=== PATIENT | female | born 1960 | race Caucasian/White ===

== ENCOUNTER 2016-10-03 14:15 | Emergency (ER) | payer BC, SELFPAY ==
[2016-10-03] MEDS ORDERED: diphenhydrAMINE HCl 50 MG/ML 1 ML VIAL ONE (14:31)
[2016-10-03] MEDS ORDERED: methylPREDNISolone Sod Succ/PF 125 MG/2 ML VIAL ONE (14:32)
== END 2016-10-03 15:30 | disposition home or self-care (01) ==
LOC: BURERS 14:15
DX: T63.461A Toxic effect of venom of wasps, accidental (unintentional), initial encounter (principal); K21.9 Gastro-esophageal reflux disease without esophagitis; I10 Essential (primary) hypertension; J44.9 Chronic obstructive pulmonary disease, unspecified; F41.9 Anxiety disorder, unspecified; F32.9 Major depressive disorder, single episode, unspecified; F17.210 Nicotine dependence, cigarettes, uncomplicated; Z79.899 Other long term (current) drug therapy
CPT/HCPCS: 96372; J1200; J2930

== ENCOUNTER 2016-10-04 04:47 | Emergency (ER) | payer SELFPAY ==
[2016-10-04] MEDS ORDERED: Ketorolac Tromethamine 30 MG/ML VIAL ONE (05:02)
[2016-10-04] MEDS ORDERED: methylPREDNISolone Sod Succ/PF 125 MG/2 ML VIAL ONE (05:02)
[2016-10-04] MEDS ORDERED: diphenhydrAMINE HCl 50 MG/ML 1 ML VIAL ONE ×2 (05:03→06:04)
[2016-10-04] MEDS ORDERED: Famotidine In NaCl 20 mg/50 ml Premix Bag ONE (06:04)
== END 2016-10-04 07:27 | disposition home or self-care (01) ==
LOC: BURERS 04:47
DX: R51 Headache (principal); T63.461D Toxic effect of venom of wasps, accidental (unintentional), subsequent encounter; K21.9 Gastro-esophageal reflux disease without esophagitis; I10 Essential (primary) hypertension; J44.9 Chronic obstructive pulmonary disease, unspecified; F41.0 Panic disorder [episodic paroxysmal anxiety]; F32.9 Major depressive disorder, single episode, unspecified; F17.210 Nicotine dependence, cigarettes, uncomplicated; Z79.899 Other long term (current) drug therapy
CPT/HCPCS: 96365; 96375; 96376; J1200; J1885; J2930

== ENCOUNTER 2017-04-06 17:16 | Emergency (ER) | payer SELFPAY ==
[~2017-04-06 17:16] MED LIST: Iopamidol 370 76% 100 ML VIAL ONE
[2017-04-06] MEDS ORDERED: Famotidine In NaCl 20 mg/50 ml Premix Bag ONE (18:07)
[2017-04-06] MEDS ORDERED: Fentanyl 100 MCG/2 ML VIAL ONE ×2 (18:07→19:10)
[2017-04-06 18:08] LABS: #Basophils 0.2 thou/uL (0.0-0.2); #Eosinphils 0.4 thou/uL (0.0-0.7); #Lymphocytes 3.4 thou/uL (1.20-3.40); #Monocytes 0.6 thou/uL (0.11-0.59); #Neutrophils 3.6 thou/uL (1.40-6.50); %Basophils 2.3 % (0.0-1.0); %Eosinophils 4.5 % (0.0-10.0); %Lymphocytes 41.6 % (21.0-51.0); %Monocytes 7.1 % (0.0-10.0); %Neutrophils 44.6 % (42.0-75.0); Hemoglobin 15.2 g/dL (12.0-16.0); Mean Corpuscular Hemoglobin 32.5 pg (27.0-31.0); Mean Corpuscular Volume 98.7 fl (81.0-99.0); Mean Platelet Volume 6.2 fL (7.4-10.4); Platelet Count 278 thou/uL (130-400); RBC Distribution Width 13.2 % (11.5-14.5); Red Blood Cell (RBC) Count 4.66 mill/uL (4.20-5.40); White Blood Cell (WBC) Count 8.1 thou/uL (4.8-10.8)
[2017-04-06 18:21] LABS: ALT (SGPT) 18 U/L (8-55); AST (SGOT) 16 U/L (5-34); Alkaline Phosphatase 107 U/L (40-150); Anion Gap 14 mmol/L (10-20); BUN (Urea Nitrogen) 6 mg/dL (9.8-20.1); Bilirubin, Total 0.3 mg/dL (0.2-1.2); Calc. Creatinine Clearance 0 mL/min (70-130); Calcium 9.5 mg/dL (7.8-10.44); Carbon Dioxide 24 mmol/L (22-29); Chloride 107 mmol/L (98-107); Estimated GFR-MDRD 80; Globulin 3.1 g/dL (2.4-3.5); Glucose 124 mg/dL (70-105); Lipase 30 U/L (8-78); Potassium 3.4 mmol/L (3.5-5.1); Protein, Total 7.1 g/dL (6.0-8.3); Sodium 142 mmol/L (136-145)
[2017-04-06 18:25] LABS: CKMB 0.6 ng/mL (0-6.6); Troponin I Less than 0.010 ng/mL (< 0.028)
[2017-04-06] MEDS ORDERED: Mag-Al Plus 1200 MG/1200 MG/120 MG/30 ML UDCUP ONE (19:11)
[2017-04-06] MEDS ORDERED: Lidocaine Viscous Sol 2% 15 ml UD Cup ONE (19:11)
[2017-04-06] MEDS ORDERED: Ketorolac Tromethamine 30 MG/ML VIAL ONE (19:11)
[2017-04-06] MEDS ORDERED: Ciprofloxacin 500 MG TAB ONE (20:00)
--- NOTE | 2017-04-07 00:34 | CT ---
CT ABDOMEN AND PELVIS WITH CONTRAST 04/06/[address] of the abdomen and pelvis was performed for evaluation of abdominal pain. Axial slices wer e acquired and then coronal reconstructions were done. The lung bases are clear except for some dependent atelectasis. The liver, spleen, pancreas, adrenal glands, gallbladder, and abdominal aorta showed no acute findings. The left kidney appears normal. There does appear to be a very minimal degree of right hydronephrosis. The right ureter is mildly d ilated down to at least the pelvic level, but a true cause for dilation is not seen. No renal masses were apparent. There is a moderate amount of fluid in the patient's stomach and some retained food material, but the wall of the stomach does not seem thickened. There is a moderate amount of fecal material in the ri ght colon. The wall of the left colon shows some slight thickening throughout. I cannot exclude a m ild degree of colitis or at least prior inflammatory change that led to some wall thickening. No fla penny streaking is seen around the bowel to definitely diagnose diverticulitis. There are a few scat tered diverticula here and there. No free air or free fluid is present. CT of the pelvis is remarkable for a somewhat enlarged uterus with an appearance suggesting multiple large fibroids. No adnexal masses were seen. No free fluid or inflammatory change was present in th e pelvis. IMPRESSION: 1. Mild thickening of the left colon which could either signify low level colitis or residual from pr ior colitis. 2. Scattered diverticula but no definite sign of diverticulitis. 3. Mild dilation of the right renal collecting system and ureter, cause not apparent, though the enla rged uterus could potentially press upon a ureter. 4. Uterine fibroids. 5. Some fluid retained in the stomach which may or may not be significant. There is no wall thickeni ng. POS: HOME
== END 2017-04-06 20:08 | disposition home or self-care (01) ==
LOC: BURERS 17:16
DX: K29.00 Acute gastritis without bleeding (principal); K52.9 Noninfective gastroenteritis and colitis, unspecified; I49.9 Cardiac arrhythmia, unspecified; I10 Essential (primary) hypertension; F41.0 Panic disorder [episodic paroxysmal anxiety]; F32.9 Major depressive disorder, single episode, unspecified; F17.210 Nicotine dependence, cigarettes, uncomplicated; J44.9 Chronic obstructive pulmonary disease, unspecified
CPT/HCPCS: 74177; 80053; 82553; 83690; 84484; 85025; 93005; 94760; 96361; 96374; 96375; 96376; A4216; J1885; J3010

== ENCOUNTER 2017-07-20 11:55 | Emergency (ER) | payer SELFPAY ==
[2017-07-20] MEDS ORDERED: Mag-Al Plus 1200 MG/1200 MG/120 MG/30 ML UDCUP ONE (12:18)
[2017-07-20] MEDS ORDERED: Lidocaine Viscous Sol 2% 15 ml UD Cup ONE (12:18)
== END 2017-07-20 12:32 | disposition home or self-care (01) ==
LOC: BURERS 11:55
DX: K29.70 Gastritis, unspecified, without bleeding (principal); F32.9 Major depressive disorder, single episode, unspecified; F41.9 Anxiety disorder, unspecified; F17.210 Nicotine dependence, cigarettes, uncomplicated; I10 Essential (primary) hypertension; K21.9 Gastro-esophageal reflux disease without esophagitis; J44.9 Chronic obstructive pulmonary disease, unspecified; Z79.899 Other long term (current) drug therapy
CPT/HCPCS: 99283

== ENCOUNTER 2017-09-05 15:16 | Emergency (ER) | payer SELFPAY ==
[2017-09-05] MEDS ORDERED: traMADol HCl 50 MG TAB ONE (15:59)
--- NOTE | 2017-09-05 16:37 | RAD ---
LEFT ANKLE THREE VIEWS: 09/05/2017 FINDINGS: Lateral swelling is present. No definite fracture is seen at this time. The ankle joint itself appe ars normal. IMPRESSION: Mild lateral swelling. POS: HOME
== END 2017-09-05 15:59 | disposition home or self-care (01) ==
LOC: BURERS 15:16
DX: S93.402A Sprain of unspecified ligament of left ankle, initial encounter (principal); I10 Essential (primary) hypertension; K21.9 Gastro-esophageal reflux disease without esophagitis; J44.9 Chronic obstructive pulmonary disease, unspecified; I49.9 Cardiac arrhythmia, unspecified; K57.92 Diverticulitis of intestine, part unspecified, without perforation or abscess without bleeding; F41.9 Anxiety disorder, unspecified; F32.9 Major depressive disorder, single episode, unspecified; F17.210 Nicotine dependence, cigarettes, uncomplicated; Z79.899 Other long term (current) drug therapy; X50.1XXA Overexertion from prolonged static or awkward postures, initial encounter

== ENCOUNTER 2018-01-13 09:18 | Emergency (ER) | payer BC, SELFPAY | END 2018-01-13 09:54 | disposition home or self-care (01) | LOC: BURERS 09:18 | DX: M54.5 Low back pain (principal); M25.562 Pain in left knee; M25.552 Pain in left hip; I10 Essential (primary) hypertension; I49.9 Cardiac arrhythmia, unspecified; K21.9 Gastro-esophageal reflux disease without esophagitis; J44.9 Chronic obstructive pulmonary disease, unspecified; F41.9 Anxiety disorder, unspecified; F32.9 Major depressive disorder, single episode, unspecified; F17.210 Nicotine dependence, cigarettes, uncomplicated; Z79.899 Other long term (current) drug therapy | CPT/HCPCS: 99283 ==

== ENCOUNTER 2021-04-03 22:26 | Emergency (ER) | payer OTHER ==
[2021-04-03 23:38] LABS: #Basophils 0.2 thou/uL (0.0-0.2); #Eosinphils 0.5 thou/uL (0.0-0.7); #Lymphocytes 4.1 thou/uL (1.20-3.40); #Monocytes 0.6 thou/uL (0.11-0.59); #Neutrophils 7.6 thou/uL (1.40-6.50); %Basophils 1.3 % (0.0-1.0); %Eosinophils 3.5 % (0.0-10.0); %Lymphocytes 31.4 % (21.0-51.0); %Monocytes 4.8 % (0.0-10.0); %Neutrophils 59.1 % (42.0-75.0); Hemoglobin 18.2 g/dL (12.0-16.0); Mean Corpuscular HGB CONC 33.4 g/dL (32.0-36.0); Mean Corpuscular Hemoglobin 34.3 pg (27.0-31.0); Mean Platelet Volume 7.3 fL (7.4-10.4); Platelet Count 260 thou/uL (130-400); RBC Distribution Width 13.3 % (11.5-14.5); Red Blood Cell (RBC) Count 5.32 mill/uL (4.20-5.40); White Blood Cell (WBC) Count 12.9 thou/uL (4.8-10.8)
[2021-04-03 23:48] LABS: ALT (SGPT) 29 U/L (8-55); AST (SGOT) 21 U/L (5-34); Albumin 4.3 g/dL (3.5-5.0); Alkaline Phosphatase 83 U/L (40-110); Anion Gap 15 mmol/L (10-20); BUN (Urea Nitrogen) 10 mg/dL (9.8-20.1); Bilirubin, Total 0.4 mg/dL (0.2-1.2); Calc. Creatinine Clearance 0 mL/min (70-130); Calcium 9.7 mg/dL (7.8-10.44); Carbon Dioxide 23 mmol/L (22-29); Chloride 107 mmol/L (98-107); Glucose 107 mg/dL (70-105); Potassium 3.4 mmol/L (3.5-5.1); Protein, Total 7.3 g/dL (6.0-8.3); Sodium 142 mmol/L (136-145)
[2021-04-04 00:06] LABS: Platelet Morphology Comment Appears Adequate; RBC Morphology Normal
[2021-04-04] MEDS ORDERED: Ketorolac Tromethamine 30 MG/ML VIAL ONE (00:51)
== END 2021-04-04 01:00 | disposition home or self-care (01) ==
LOC: BURERS 22:26
DX: K11.6 Mucocele of salivary gland (principal); I10 Essential (primary) hypertension; J44.9 Chronic obstructive pulmonary disease, unspecified; K21.9 Gastro-esophageal reflux disease without esophagitis; F17.210 Nicotine dependence, cigarettes, uncomplicated
CPT/HCPCS: 70491; 80053; 85025; 96374; J1885

== ENCOUNTER 2022-08-12 15:42 | Emergency (ER) | payer SELFPAY | END 2022-08-12 16:23 | disposition home or self-care (01) | LOC: BURERS 15:42 | DX: I10 Essential (primary) hypertension (principal); J44.9 Chronic obstructive pulmonary disease, unspecified; K21.9 Gastro-esophageal reflux disease without esophagitis; F17.210 Nicotine dependence, cigarettes, uncomplicated; Z79.899 Other long term (current) drug therapy | CPT/HCPCS: 99283 ==

== ENCOUNTER 2023-09-03 19:14 | Emergency (ER) | payer OTHER ==
[2023-09-03] MEDS ORDERED: Ketorolac Tromethamine 30 MG (1 mL) VIAL ONE (19:58)
[2023-09-03 20:00] LABS: #Basophils 0.1 thou/uL (0.0-0.2); #Eosinphils 0.3 thou/uL (0.0-0.7); #Lymphocytes 3.2 thou/uL (1.20-3.40); #Monocytes 0.4 thou/uL (0.11-0.59); #Neutrophils 3.3 thou/uL (1.40-6.50); %Basophils 1.2 % (0.0-1.0); %Eosinophils 3.7 % (0.0-10.0); %Lymphocytes 44.1 % (21.0-51.0); %Monocytes 4.8 % (0.0-10.0); %Neutrophils 46.2 % (42.0-75.0); Hematocrit 36.2 % (36.0-47.0); Mean Corpuscular HGB CONC 33.2 g/dL (32.0-36.0); Mean Corpuscular Hemoglobin 34.6 pg (27.0-31.0); Mean Platelet Volume 6.4 fL (7.4-10.4); Platelet Count 225 10x3/uL (130-400); RBC Distribution Width 11.5 % (11.5-14.5); Red Blood Cell (RBC) Count 3.47 mill/uL (4.20-5.40); White Blood Cell (WBC) Count 7.2 10x3/uL (4.8-10.8)
[2023-09-03 20:01] LABS: MDiff Complete? YES
[2023-09-03 20:18] LABS: ALT (SGPT) 12 U/L (8-55); AST (SGOT) 13 U/L (5-34); Albumin 3.7 g/dL (3.4-4.8); Alkaline Phosphatase 96 U/L (40-110); Anion Gap 13 mmol/L (10-20); BUN (Urea Nitrogen) 13 mg/dL (9.8-20.1); Bilirubin, Total 0.2 mg/dL (0.2-1.2); Calc. Creatinine Clearance 0 mL/min (70-130); Calcium 8.8 mg/dL (7.8-10.44); Carbon Dioxide 22 mmol/L (23-31); Chloride 110 mmol/L (98-107); Estimated GFR 61; Globulin 2.7 g/dL (2.4-3.5); Glucose 134 mg/dL (80-115); Lipase 35 U/L (8-78); Potassium 4.3 mmol/L (3.5-5.1); Protein, Total 6.4 g/dL (5.8-8.1); Sodium 141 mmol/L (136-145)
== END 2023-09-03 21:28 | disposition home or self-care (01) ==
LOC: BURERS 19:14
DX: K52.9 Noninfective gastroenteritis and colitis, unspecified (principal); F17.210 Nicotine dependence, cigarettes, uncomplicated; I10 Essential (primary) hypertension; J44.9 Chronic obstructive pulmonary disease, unspecified; Z79.84 Long term (current) use of oral hypoglycemic drugs
CPT/HCPCS: 74176; 80053; 83690; 85025; J1885